=== PATIENT | female | born 1985 | race Caucasian/White ===

== ENCOUNTER 2024-03-09 18:05 | Inpatient (IN) | payer BC, MEDICAID, OTHER ==
[~2024-03-09] VITALS: Ht 170.2 cm; Wt 98.4 kg
[2024-03-09 18:59] LABS: BASOPHILS % (AUTO) 0.6 % (0.0-2.0); EOSINOPHILS # (AUTO) 0.1 K/uL (0.0-0.7); EOSINOPHILS % (AUTO) 1.9 % (0.0-6.0); HEMATOCRIT 39 % (33-45); HEMOGLOBIN 12.5 g/dL (11.5-14.8); LYMPHOCYTES # (AUTO) 1.7 K/uL (0.8-4.8); LYMPHOCYTES % (AUTO) 26.1 % (20.0-44.0); MEAN CORPUSCULAR HEMOGLOBIN 27 PG (26.0-33.0); MEAN CORPUSCULAR HGB CONC 32 g/dl (31.0-36.0); MEAN CORPUSCULAR VOLUME 83 fL (82-100); MONOCYTES # (AUTO) 0.5 K/uL (0.1-1.30); MONOCYTES % (AUTO) 7.8 % (2.0-12.0); NEUTROPHILS # (AUTO) 4.2 K/uL (1.8-8.9); NEUTROPHILS % (AUTO) 63.6 % (43.0-81.0); PLATELET COUNT (AUTO) 298 K/uL (150-450); RED BLOOD CELL COUNT(AUTO) 4.66 MIL/uL (4.0-5.2); RED CELL DISTRIBUTION WIDTH 14.1 % (11.5-15.0); WHITE BLOOD COUNT (AUTO) 6.6 K/uL (4.3-11.0)
[2024-03-09] MEDS ORDERED: NITROGLYCERIN 0.4 MG/TAB BOTTLE ONE (19:04)
[2024-03-09 19:07] LABS: CALCIUM, SERUM 8.8 mg/dL (8.5-10.1); CARBON DIOXIDE 28 mmol/L (21-32); CHLORIDE 105 mmol/L (98-107); CREATININE 0.8 mg/dL (0.6-1.3); GLUCOSE 147 mg/dL (74-106); POTASSIUM 3.4 mmol/L (3.5-5.1); SODIUM SERUM 140 mmol/L (136-145); UREA NITROGEN, BLOOD 11 mg/dL (7-18)
[2024-03-09] MEDS ORDERED: ONDANSETRON HCL/PF 4 MG/2 ML VIAL ONE (19:07)
[2024-03-09] MEDS: NITROGLYCERIN 0.4 MG/TAB BOTTLE SL ONE (19:07)
[2024-03-09] MEDS: MORPHINE SULFATE INJ 2 MG/ML DISP.SYRIN IV ONE (19:08)
[2024-03-09] MEDS ORDERED: MORPHINE SULFATE INJ 4 MG/ML DISP.SYRIN ONE (19:08)
[2024-03-09] MEDS: ONDANSETRON HCL/PF 4 MG/2 ML VIAL IVP ONE (19:10)
[2024-03-09 19:20] LABS: NT-PRO BNP 127 pg/mL (0-125)
[2024-03-09] MEDS ORDERED: BIOTIN PO (19:50)
[2024-03-09] MEDS ORDERED: ACET-907 PO (19:50)
[2024-03-09] MEDS ORDERED: MULTIVITAMIN GUMMIES PO (19:50)
[2024-03-09] MEDS ORDERED: ACET-1951 PO (19:50)
[2024-03-09] MEDS ORDERED: CIDE600C PO (19:50)
[2024-03-09] MEDS ORDERED: ONDANSETRON HCL/PF 4 MG/2 ML VIAL IVP PRN (20:30)
[2024-03-09] MEDS ORDERED: Z GUARD REMEDY 4 OZ OINT TP PRN (20:30)
[2024-03-09] MEDS ORDERED: MAGNESIUM HYDROXIDE 30 ML UDC PO PRN (20:30)
[2024-03-09] MEDS ORDERED: MAG HYDROX/AL HYDROX/SIMETH 30 ML UDC PO PRN (20:30)
[2024-03-09] MEDS ORDERED: NITROGLYCERIN 0.4 MG/TAB BOTTLE SL PRN (21:00)
[2024-03-09 21:30] VITALS: BP 118/64; TEMP 97.8; O2SAT 99
[2024-03-09] MEDS: HYDROCODONE/APAP 10/325MG TABLET PO PRN (22:09)
[2024-03-10] VITALS: BP 112/71; TEMP 98.2; O2SAT 99
[2024-03-10] MEDS ORDERED: DEXTROSE 50%-WATER 50 ML DISP.SYRIN IV PRN
[2024-03-10] MEDS: MORPHINE SULFATE INJ 4 MG/ML DISP.SYRIN IV PRN (00:48)
[2024-03-10] MEDS: ZOLPIDEM TARTRATE 5 MG TABLET PO PRN (01:40)
[2024-03-10 04:00] VITALS: BP 104/56; TEMP 98.2; O2SAT 96
[2024-03-10] MEDS: BLOOD SUGAR DIAGNOSTIC 1 EACH STRIP IN SCH (06:53)
[2024-03-10] MEDS: INSULIN REGULAR, HUMAN 100 UNIT/ML 3 ML VIAL SQ PRN (06:53)
[2024-03-10 07:00] VITALS: BP 119/72; TEMP 97.7; O2SAT 99
[2024-03-10 07:43] LABS: BASOPHILS # (AUTO) 0.1 K/uL (0.0-0.2); BASOPHILS % (AUTO) 1.2 % (0.0-2.0); EOSINOPHILS # (AUTO) 0.2 K/uL (0.0-0.7); EOSINOPHILS % (AUTO) 2.8 % (0.0-6.0); HEMATOCRIT 34 % (33-45); HEMOGLOBIN 11.1 g/dL (11.5-14.8); LYMPHOCYTES # (AUTO) 2.3 K/uL (0.8-4.8); LYMPHOCYTES % (AUTO) 34.1 % (20.0-44.0); MEAN CORPUSCULAR HEMOGLOBIN 27 PG (26.0-33.0); MEAN CORPUSCULAR HGB CONC 33 g/dl (31.0-36.0); MEAN CORPUSCULAR VOLUME 84 fL (82-100); MONOCYTES # (AUTO) 0.6 K/uL (0.1-1.30); MONOCYTES % (AUTO) 9.2 % (2.0-12.0); NEUTROPHILS # (AUTO) 3.5 K/uL (1.8-8.9); NEUTROPHILS % (AUTO) 52.7 % (43.0-81.0); PLATELET COUNT (AUTO) 245 K/uL (150-450); RED BLOOD CELL COUNT(AUTO) 4.03 MIL/uL (4.0-5.2); RED CELL DISTRIBUTION WIDTH 14.1 % (11.5-15.0); WHITE BLOOD COUNT (AUTO) 6.6 K/uL (4.3-11.0)
[2024-03-10] MEDS: ASPIRIN 81 MG TAB.CHEW PO SCH (08:00)
[2024-03-10 08:33] LABS: ALBUMIN 2.6 g/dL (3.4-5.0); BILIRUBIN,TOTAL 0.2 mg/dL (0.2-1.0); CALCIUM, SERUM 8.5 mg/dL (8.5-10.1); CREATININE 0.7 mg/dL (0.6-1.3); MAGNESIUM 2.4 mg/dL (1.8-2.4); PHOSPHORUS 4.6 mg/dL (2.5-4.9); POTASSIUM 3.3 mmol/L (3.5-5.1); TOTAL PROTEIN, SERUM 6.3 g/dL (6.4-8.2)
[2024-03-10] MEDS ORDERED: CIDER VINEGAR PO SCH (09:00)
[2024-03-10] MEDS: POTASSIUM CHLORIDE 20 MEQ TAB.PRT.SR PO SCH (10:33)
[2024-03-10] MEDS ORDERED: IV NS 0.9% 250 ML IV ONE (13:39)
[2024-03-10] MEDS ORDERED: IOHEXOL-350 100 ML VIAL IV ONE (13:39)
[2024-03-10] MEDS ORDERED: NITROGLYCERIN 0.4 MG/TAB BOTTLE ONE (14:03)
[2024-03-10] MEDS: NITROGLYCERIN 0.4 MG/TAB BOTTLE SL ONE (14:04)
[2024-03-10] MEDS: ACETAMINOPHEN 325 MG TABLET PO PRN (15:16)
[2024-03-10 16:00] VITALS: BP 134/69; TEMP 97.7; O2SAT 98
== END 2024-03-10 18:45 | disposition home or self-care (01) | DRG 243 ==
LOC: ER 18:19 → TELE 21:16 → MED 03-10 09:29
PROVIDERS: ADMIT Nurse Practitioner Acute Care
DX: K21.9 Gastro-esophageal reflux disease without esophagitis (principal); E11.9 Type 2 diabetes mellitus without complications; E66.9 Obesity, unspecified; I10 Essential (primary) hypertension; R06.00 Dyspnea, unspecified; Z68.34 Body mass index [BMI] 34.0-34.9, adult; Z79.899 Other long term (current) drug therapy; F17.210 Nicotine dependence, cigarettes, uncomplicated
CPT/HCPCS: 36415; 71045-TC; 75574; 80048-TC; 80053-TC; 80061-TC; 82962-TC; 83735-TC; 83880; 84100-TC; 84484-TC; 84702-TC; 85025-TC; 85378-TC; 93307-TC; G0378; J1815; J2270; J2405; J7050; Q9967

== ENCOUNTER 2024-06-01 10:52 | Emergency (ER) | payer OTHER ==
[~2024-06-01] VITALS: Ht 170.2 cm; Wt 99.4 kg
[~2024-06-01 10:52] MED LIST: ACET-907 PO; BIOTIN PO; CIDE600C PO; MULTIVITAMIN GUMMIES PO
[2024-06-01 11:19] VITALS: TEMP 98.1
[2024-06-01 11:55] LABS: BASOPHILS # (AUTO) 0.1 K/uL (0.0-0.2); BASOPHILS % (AUTO) 0.9 % (0.0-2.0); EOSINOPHILS # (AUTO) 0.1 K/uL (0.0-0.7); EOSINOPHILS % (AUTO) 1.8 % (0.0-6.0); HEMATOCRIT 38 % (33-45); HEMOGLOBIN 12.4 g/dL (11.5-14.8); LYMPHOCYTES # (AUTO) 1.5 K/uL (0.8-4.8); LYMPHOCYTES % (AUTO) 20.3 % (20.0-44.0); MEAN CORPUSCULAR HEMOGLOBIN 27 PG (26.0-33.0); MEAN CORPUSCULAR HGB CONC 32 g/dl (31.0-36.0); MEAN CORPUSCULAR VOLUME 83 fL (82-100); MONOCYTES # (AUTO) 0.6 K/uL (0.1-1.30); MONOCYTES % (AUTO) 8.5 % (2.0-12.0); NEUTROPHILS # (AUTO) 5.2 K/uL (1.8-8.9); NEUTROPHILS % (AUTO) 68.5 % (43.0-81.0); PLATELET COUNT (AUTO) 304 K/uL (150-450); RED CELL DISTRIBUTION WIDTH 15.7 % (11.5-15.0); WHITE BLOOD COUNT (AUTO) 7.6 K/uL (4.3-11.0)
[2024-06-01] MEDS: ACETAMINOPHEN ES 500 MG TABLET PO ONE (12:00)
[2024-06-01 12:04] LABS: CALCIUM, SERUM 8.4 mg/dL (8.5-10.1); CREATININE 0.7 mg/dL (0.6-1.3); POTASSIUM 3.8 mmol/L (3.5-5.1)
[2024-06-01] MEDS ORDERED: ACETAMINOPHEN ES 500 MG TABLET ONE (12:04)
[2024-06-01 12:15] LABS: ALBUMIN 3.4 g/dL (3.4-5.0); BILIRUBIN,DIRECT 0.1 mg/dL (0.0-0.2); BILIRUBIN,TOTAL 0.3 mg/dL (0.2-1.0); TOTAL PROTEIN, SERUM 7.4 g/dL (6.4-8.2)
[2024-06-01 12:24] LABS: APPEARANCE,URINE Clear (CLEAR); BILIRUBIN,URINE Negative (NEGATIVE); BLOOD, URINE Negative Ery/uL (NEGATIVE); COLOR,URINE YELLOW (YELLOW); KETONES,URINE Negative (NEGATIVE); LEUKOCYTE ESTERASE ,URINE Negative (NEGATIVE); NITRITE, URINE Negative (NEGATIVE); PH,URINE 5.5 (5.0-8.0); PROTEIN,URINE Negative (NEGATIVE); UGLUCOSE Negative (NEGATIVE); UROBILINOGEN,URINE 0.2 EU/dL (0.2)
[2024-06-01] MEDS: IV NS 0.9% 1,000 ML BAG IV ONE (12:45)
[2024-06-01] MEDS ORDERED: LISI40TA13 PO (13:10)
[2024-06-01 13:23] VITALS: BP 140/75; O2SAT 99
== END 2024-06-01 13:24 | disposition home or self-care (01) ==
LOC: ER 11:12
DX: R10.2 Pelvic and perineal pain (principal); I10 Essential (primary) hypertension; E11.9 Type 2 diabetes mellitus without complications; Z86.79 Personal history of other diseases of the circulatory system; Z88.8 Allergy status to other drugs, medicaments and biological substances
CPT/HCPCS: 36415; 76856-TC; 80048-TC; 80076-TC; 84702-TC; 85025-TC; J7030

== ENCOUNTER 2025-08-17 16:44 | Emergency (ER) | payer OTHER ==
[~2025-08-17] VITALS: Ht 170.2 cm; Wt 91.2 kg
[~2025-08-17 16:44] MED LIST changes: +LISI40TA13 PO
[2025-08-17] MEDS ORDERED: ASPIRIN 81 MG TAB.CHEW ONE (17:27)
[2025-08-17] MEDS ORDERED: ASPIRIN 81 MG TAB.CHEW PO ONE (17:30)
[2025-08-17 17:33] LABS: PLATELET COUNT (AUTO) 263 K/uL (150-450); RED BLOOD CELL COUNT(AUTO) 4.71 MIL/uL (4.0-5.2); RED CELL DISTRIBUTION WIDTH 14.6 % (11.5-15.0); WHITE BLOOD COUNT (AUTO) 6.4 K/uL (4.3-11.0)
[2025-08-17 17:38] LABS: CALCIUM, SERUM 9.2 mg/dL (8.5-10.1); CREATININE 1.0 mg/dL (0.6-1.3); SODIUM SERUM 137 mmol/L (136-145); UREA NITROGEN, BLOOD 16 mg/dL (7-18)
[2025-08-17 17:44] LABS: ASPARTATE AMINOTRANSFERASE 12 U/L (15-37); TOTAL PROTEIN, SERUM 8.2 g/dL (6.4-8.2)
[2025-08-17 19:02] VITALS: BP 120/85; TEMP 98.2; O2SAT 99
== END 2025-08-17 19:03 | disposition home or self-care (01) ==
LOC: ER 16:47
DX: R07.9 Chest pain, unspecified (principal); I11.9 Hypertensive heart disease without heart failure; E11.9 Type 2 diabetes mellitus without complications; Z79.899 Other long term (current) drug therapy; Z88.6 Allergy status to analgesic agent; Z20.822 Contact with and (suspected) exposure to COVID-19
CPT/HCPCS: 36415; 71045-TC; 80048-TC; 80076-TC; 84484-TC; 84703-TC; 85025-TC

== ENCOUNTER 2025-10-16 10:06 | Emergency (ER) | payer OTHER ==
[~2025-10-16] VITALS: Ht 170.2 cm; Wt 95.3 kg
[~2025-10-16 10:06] MED LIST changes: -LISI40TA13 PO; +LISI40TA20 PO
[2025-10-16 10:34] LABS: PLATELET COUNT (AUTO) 321 K/uL (150-450); RED BLOOD CELL COUNT(AUTO) 4.26 MIL/uL (4.0-5.2); RED CELL DISTRIBUTION WIDTH 13.8 % (11.5-15.0); WHITE BLOOD COUNT (AUTO) 6.3 K/uL (4.3-11.0)
[2025-10-16 10:46] LABS: CALCIUM, SERUM 8.5 mg/dL (8.5-10.1); CREATININE 0.7 mg/dL (0.6-1.3); SODIUM SERUM 139.0 mmol/L (136-145); UREA NITROGEN, BLOOD 13.0 mg/dL (7-18)
[2025-10-16 10:52] LABS: ASPARTATE AMINOTRANSFERASE 18.0 U/L (15-37); TOTAL PROTEIN, SERUM 7.4 g/dL (6.4-8.2)
[2025-10-16 10:59] LABS: APPEARANCE,URINE CLEAR (CLEAR); BLOOD, URINE NEGATIVE Ery/uL (NEGATIVE); LEUKOCYTE ESTERASE ,URINE TRACE (NEGATIVE); NITRITE, URINE NEGATIVE (NEGATIVE); UGLUCOSE NEGATIVE (NEGATIVE)
[2025-10-16 11:01] LABS: PREGNANCY TEST URINE QUAL NEGATIVE (NEGATIVE)
[2025-10-16 11:14] LABS: ADD URINE CULTURE NO
[2025-10-16] MEDS ORDERED: HYDR-4303 PO (12:58)
[2025-10-16 13:05] VITALS: BP 128/70; TEMP 97.8; O2SAT 99
== END 2025-10-16 13:05 | disposition home or self-care (01) ==
LOC: ER 10:10
DX: N83.292 Other ovarian cyst, left side (principal); R10.32 Left lower quadrant pain; E11.9 Type 2 diabetes mellitus without complications; R10.20 Pelvic and perineal pain unspecified side; I11.9 Hypertensive heart disease without heart failure; Z88.6 Allergy status to analgesic agent; Z79.899 Other long term (current) drug therapy; Z60.2 Problems related to living alone
CPT/HCPCS: 36415; 76856-TC; 80048-TC; 80076-TC; 81001; 83690-TC; 84702-TC; 84703-TC; 85025-TC